=== PATIENT | male | born 1950 | race Caucasian/White ===

== ENCOUNTER 2024-07-11 19:58 | Emergency (ER) | payer OTHER, MEDICARE ==
[~2024-07-11] VITALS: Ht 172.7 cm; Wt 94.1 kg
[2024-07-11 20:10] VITALS: BP 148/84; PULSE 78; RESP 18; TEMP 98.7; O2SAT 96
[2024-07-11] MEDS ORDERED: PHEN51CR24 TOP (20:41)
[2024-07-11] MEDS ORDERED: [UNRECOGNIZED DRUG - CODE] TOP (20:41)
[2024-07-11] MEDS: hydrocort. acetate/pramoxine 10gm bottle RC PRN (21:06)
== END 2024-07-11 21:11 | disposition home or self-care (01) ==
LOC: ER 19:59 → EDSEX 19:59 → ER 21:11
DX: K64.4 Residual hemorrhoidal skin tags (principal)
CPT/HCPCS: 99283